=== PATIENT | female | born 1990 | race Caucasian/White ===

== ENCOUNTER 2024-10-04 06:45 | Day surgery (SDC) | payer OTHER ==
[2024-09-29 14:31] VITALS: BMI 37.0
[2024-10-04] MEDS ORDERED: PROPOFOL 20 ML ONE (10:01)
[2024-10-04] MEDS ORDERED: LIDOCAINE HCL/PF 2% SDV 5ML VIAL ONE (10:01)
[2024-10-04] MEDS ORDERED: MIDAZOLAM HCL 2 MG/2 ML SINGLE DOSE VIAL ONE (10:01)
[2024-10-04] MEDS: DOXYCYCLINE HYCLATE 100 MG VIAL IVPB ONE (12:05)
[2024-10-04] MEDS ORDERED: DEXAMETHASONE SOD PHOSPHATE 4 MG/1 ML VIAL ONE (12:09)
[2024-10-04] MEDS ORDERED: ONDANSETRON 4 MG/2 ML VIAL ONE (12:14)
[2024-10-04] MEDS ORDERED: KETOROLAC TROMETHAMINE 30 MG/1 ML VIAL ONE (12:14)
[2024-10-04] MEDS ORDERED: PROMETHAZINE HCL 25 MG/1 ML VIAL IVPB PRN (12:18)
[2024-10-04] MEDS ORDERED: oxyCODONE HCL 5 MG TABLET PO PRN ×2 (12:18)
[2024-10-04] MEDS ORDERED: ONDANSETRON 4 MG/2 ML VIAL IVPUSH PRN (12:18)
[2024-10-04] MEDS ORDERED: ACETAMINOPHEN 1000 MG/100 ML BAG IVPB ONE (12:19)
[2024-10-04] MEDS ORDERED: LACTATED RINGERS SOLUTION 1,000 ML IV SCH (12:30)
[2024-10-04] MEDS: METHYLERGONOVINE MALEATE 0.2 MG/1 ML AMP NR ONE (12:30)
[2024-10-04 14:20] VITALS: PULSE 88; RESP 18
[2024-10-04 16:24] VITALS: BP 129/82; TEMP 97.6
== END 2024-10-04 16:10 | disposition home or self-care (01) ==
LOC: JASU-SURG 06:45
PROVIDERS: ATTEND Obstetrics & Gynecology Obstetrics
PROC: 10D17ZZ Extraction of Products of Conception, Retained, Via Natural or Artificial Opening (ICD-10-PCS; principal; 2024-10-04 11:30)
DX: O02.1 Missed abortion (principal); Z3A.08 8 weeks gestation of pregnancy
CPT/HCPCS: 86850; 86900; 86901; 88305-TC; 94760